=== PATIENT | male | born 1990 | race Caucasian/White ===

== ENCOUNTER 2020-12-12 18:10 | Emergency (ER) | payer SELFPAY ==
[2020-12-12 18:13] VITALS: BP 140/73; PULSE 70; RESP 16; TEMP 36.8; O2SAT 98; BMI 29.8
--- NOTE | 2020-12-12 18:52 | HMH.EDABDPAI ---
ED Disposition Clinical Impression: External hemorrhoids Disposition: Home, Self-Care Condition on Discharge: Good Instructions: DI for Hemorrhoids Prescriptions: Docusate Sodium [Colace] 100 mg PO DAILY #15 cap Transmission Status: Pending to [facility] Referrals: Chan Hightower MD [Primary Care Provider] - - Critical Care Critical Care Time: No Attestation: On 12/12/20, the high probability of a clinically significant, sudden or life threatening deterioration of the following system(s) required my full and direct attention, intervention and personal management. The time I documented below is in addition to time spent performing reported procedures but includes the following listed in this critical care notation. Medical Decision Making - Medical Records Medical records reviewed: Yes: I reviewed the patient's medical records. - Mario Inquiry Pt receiving controlled substance: No Vital Signs: 12/12/20 18:13 Temperature 98.3 F Temperature Source Oral Pulse Rate [Radial] 70 Respiratory Rate 16 Blood Pressure [Right Arm] 140/73 Blood Pressure Mean [Right Arm] 95 Blood Pressure Position [Right Arm] Sitting 02 Sat by Pulse Oximetry 98 Oxygen Delivery Method Room Air Medical Decision Narrative: 30-year-old male presented to the emergency department with some rectal bleeding. The patient does have findings of external hemorrhoids. No evidence of thrombosis. Patient states that he already has Preparation H at home. I will give him general surgery to follow-up. There is no evidence of excessive blood loss this time. Patient needs to follow-up with general surgery. Given strict return precautions. Verbalized understanding. Abdominal Pain HPI - General Chief Complaint: Abdominal Pain Stated Complaint: Rectal bleeding Time Seen by Provider: 12/12/20 18:15 Mode of Arrival: Ambulatory Limitations: No Limitations Description of Symptoms (Recalled from ER Triage Doc. by RN): to ed per pvt car with c/o rectal bleeding x 2 days. denies nausea, vomiting, abd pain. - History of Present Illness HPI narrative: 30-year-old male presented to the emergency department with some rectal bleeding. Patient states that he has had this for the last 2 days. Patient has a longstanding history of hemorrhoids. He has received treatment for this in the past. He states that he has been more constipated than normal and is noted some bright red blood when he is taking his stools. He feels like they are coating his stools. He is not having any pain or itching in the rectal area. He denies any other mucus. Not having fevers or chills. No abdominal pain or vomiting. No chest pain or shortness of breath. No headache, change in vision or focal weakness. - Related Data Previous Rx's Medication Instructions Recorded naproxen 500 mg tablet 500 mg PO BID #60 tab 09/06/19 prednisone 20 mg tablet 20 mg PO BID 5 Days #10 tab 09/06/19 Docusate Sodium [Colace] 100 mg PO DAILY #15 cap 12/12/20 Allergies Allergy/AdvReac Type Severity Reaction Status Date / Time AMOXICILLIN Allergy Intermediate I-HIVES Uncoded 09/06/19 14:56 [facility] History - Hepatitis A Screen Drug use history?: No High risk sexual behaviors?: No History of sexually transmitted infection?: No Currently employed?: No Childcare worker?: No Do you have indoor plumbing?: Yes Do you have electricity?: Yes Attestation statement:: This patient has been screened for Hepatitis A risk factors. I have reviewed the patient's past medical history: Yes Other Surgeries: Yes: Other (wisdom teeth removed) Amputation: No Fractures: Yes (left ankle) - Social History Smoking Status: Former smoker Alcohol Intake: current Alcohol Intake Frequency:: a few times a month Substance Use Type: former substance user, crack/cocaine Occupational Status: employed Housing: apartment Household Members: family Family Hx:: Heart Attack, Cancer, Hypertension, Str
[2020-12-12 19:04] VITALS: BP 140/73; PULSE 70; RESP 16; TEMP 36.8; O2SAT 98
== END 2020-12-12 19:05 | disposition home or self-care (01) ==
PROVIDERS: Emergency Provider Emergency Medicine; PCP Emergency Medicine
DX: K64.9 Unspecified hemorrhoids (principal)
CPT/HCPCS: 99281

== ENCOUNTER 2021-05-07 00:23 | Emergency (ER) | payer SELFPAY ==
[2021-05-07 00:25] VITALS: BP 122/55; PULSE 79; RESP 14; TEMP 36.8; O2SAT 97; BMI 29.8
[2021-05-07 00:51] LABS: Strep Scrn Group A (Rapid) Negative (Negative)
--- NOTE | 2021-05-07 01:00 | HMH.EDGENADL ---
ED Disposition Clinical Impression: Upper respiratory infection Qualifiers: URI type: unspecified viral URI Qualified Code(s): J06.9 - Acute upper respiratory infection, unspecified Disposition: Home, Self-Care Condition on Discharge: Good Instructions: DI for Acute Bronchitis Referrals: Chan Hightower MD [Primary Care Provider] - - Critical Care Critical Care Time: No Attestation: On 05/07/21, the high probability of a clinically significant, sudden or life threatening deterioration of the following system(s) required my full and direct attention, intervention and personal management. The time I documented below is in addition to time spent performing reported procedures but includes the following listed in this critical care notation. Medical Decision Making - Mario Inquiry Pt receiving controlled substance: No Vital Signs: 05/07/21 00:25 Temperature 98.2 F Temperature Source Oral Pulse Rate [Right] 79 Respiratory Rate 14 Blood Pressure [Right Arm] 122/55 L Blood Pressure Mean [Right Arm] 77 02 Sat by Pulse Oximetry 97 - Lab Data Lab Results 05/07/21 00:30: Group A Strep Rapid Negative Orders (Tests/Meds): ED MEDICATIONS Discontinued Medications Generic Name Dose Route Start Last Admin Trade Name Freq PRN Reason Stop Dose Admin Dexamethasone 10 mg 05/07/21 00:47 Dexamethasone 4mg Tablet PO 05/07/21 00:48 ONCE ONE ORDERS Category Date Time Status Strep Screen Confirmation Stat Micro 05/07/21 00:30 Received Medical Decision Narrative: The patient is a 30-year-old male with no significant past medical history who presents to the emergency department with 3 days of sore throat associated with subjective fever and chills. Differential diagnosis includes strep pharyngitis, COVID-19, influenza, peritonsillar abscess, retropharyngeal abscess. Patient is overall very well-appearing with normal vital signs. He is tolerating normal p.o. and has no shortness of breath. His exam is not concerning for [employer] or RPA. Strep swab obtained and was negative. Patient refused to have the COVID-19 swab. Discussed that this was likely a viral infection and was most likely contagious. We discussed that it could be COVID-19 and that he should self isolate. Was given strict return precautions and discharged. General Adult HPI - General Chief complaint: Upper Respiratory Infection Stated complaint: sore throat,fever Time Seen by Provider: 05/07/21 00:38 Mode of Arrival: Ambulatory Source of Information: Patient Limitations: No Limitations Description of Symptoms (Recalled from ER Triage Doc. by RN): pt c/o sore throat, fever, body aches x 3 days that is worse at night - History of Present Illness HPI narrative: Patient is a 30-year-old male presents to the emergency department with 3 days of sore throat associated with subjective fever and chills. He has been taking ibuprofen and Mucinex without improvement in his symptoms. He reports he has had many similar episodes in the past that he has not seen a doctor for. He came in today because he reports that his girlfriend was concerned. He is tolerating normal p.o. He is managing his secretions and denies any shortness of breath. He has not had the COVID-19 vaccination. - Related Data Previous Rx's Medication Instructions Recorded naproxen 500 mg tablet 500 mg PO BID #60 tab 09/06/19 prednisone 20 mg tablet 20 mg PO BID 5 Days #10 tab 09/06/19 Docusate Sodium [Colace] 100 mg PO DAILY #15 cap 12/12/20 Allergies Allergy/AdvReac Type Severity Reaction Status Date / Time AMOXICILLIN Allergy Intermediate I-HIVES Uncoded 09/06/19 14:56 [facility] History - Hepatitis A Screen Drug use history?: No High risk sexual behaviors?: No History of sexually transmitted infection?: No Currently employed?: No Childcare worker?: No Do you have indoor plumbing?: Yes Do you have electricity?: Yes Attestation statement:: This patient
[2021-05-07 01:22] VITALS: BP 120/82; PULSE 75; RESP 16; TEMP 36.8; O2SAT 97
== END 2021-05-07 01:23 | disposition home or self-care (01) ==
PROVIDERS: Emergency Provider Emergency Medicine; PCP Emergency Medicine
DX: J06.9 Acute upper respiratory infection, unspecified (principal); Z20.822 Contact with and (suspected) exposure to COVID-19; Z87.891 Personal history of nicotine dependence
CPT/HCPCS: 87430; 99282

== ENCOUNTER → 2021-05-07 12:11 | Outpatient (CLI) | payer SELFPAY | PROVIDERS: PCP Nurse Practitioner Family; Visit Provider Nurse Practitioner Family | DX: Z20.822 Contact with and (suspected) exposure to COVID-19 (principal) | CPT/HCPCS: U0003 ==